=== PATIENT | female | born 2000 | race Caucasian/White ===

== ENCOUNTER 2024-05-15 20:22 | Emergency (ER) | payer SELFPAY ==
[2024-05-15 20:34] VITALS: BMI 21.0
[2024-05-15 20:50] VITALS: BP 114/71
--- NOTE | 2024-05-15 21:00 | EDRN ---
Pt resides at a sober living house currently and has for the past 2 months.
To contact the Geotechnical Field Technician of sober living housing please call PAT at [phone].
To contact the employment specialist/program manager of sober living [facility] (who brought the pt to the ER) please call [phone]
--- NOTE | 2024-05-15 21:25 | ED.GENMED ---
History of Present Illness
General
Chief Complaint: Suicidal Ideation
Source: patient
Time Seen by Provider: 05/15/24 20:59
History of Present Illness
History of Present Illness:
24-year-old female with a history of bipolar disorder and substance abuse who is living in a sober living house and for last several weeks has felt suicidal. Tonight while walking she admitted that she felt the need to jump into traffic. Staff
became concerned and spoke with the nurse practitioner who advised to come for evaluation. Patient currently does report feeling suicidal but admits that she is always willing to tell people when she does. Currently offers no medical complaints.
Past History
Past History
ED Past Medical History: Psychiatric (Anxiety, bipolar disorder, substance abuse)
Phy Exam
Physical Exam
Physical Exam:
CONSTITUTIONAL Vital signs reviewed, Patient alert and oriented to person, place and time. Well-appearing
HEAD atraumatic, normocephalic.
EYES eyelids normal to inspection, Extraocular muscles intact, Conjunctiva normal, Sclera normal.
NECK normal range of motion, Trachea midline, no jugular venous distention.
RESP no respiratory distress
BACK No obvious deformities
UPPER EXTREMITY Gross Range of motion normal, gross motor strength normal
LOWER EXTREMITY Gross range of motion normal, Gross motor strength normal
NEURO Speech normal, No focal motor deficits include, [place] coma scale 15, Memory normal, Cranial Nerves intact to screening exam.
SKIN Skin warm, dry, and normal in color.
PSYCHIATRIC Patient oriented to person place and time, Normal affect.
Course
Orders/Labs/Results
Orders:
Orders
05/15/24 20:28
1:1 Observation - Suicide/ Violent Behavior As Directed
Crisis Consult Urgent
Reason for Consult: suicidal ideation
05/16/24 00:09
Test Result ONCE
05/16/24 00:12
Buspirone [Buspar] 15 mg PO NOW STA
Divalproex Delayed Rel. 12 Hr [Depakote (12 Hr Release)] 125 mg PO NOW STA
Quetiapine Fumarate [Seroquel] 100 mg PO NOW STA
05/16/24 00:16
, Urine Qualitative Screen [HCG, Urine Qualitative Screen] Urgent
Date Specimen was Collected: 05/16/24
Time Specimen was Collected: 00:09
Urine Drug Abuse Screen Urgent
Date Specimen was Collected: 05/16/24
Time Specimen was Collected: 00:09
Vital Signs
Initial and Last Documented VS:
Initial Vital Signs
Temp Pulse Resp BP Pulse Ox
98.5 F 82 18 114/71 99
05/15/24 20:50 05/15/24 20:50 05/15/24 20:50 05/15/24 20:50 05/15/24 20:50
Last Documented Vital Signs
Temp Pulse Resp BP Pulse Ox
98.5 F 73 18 111/68 98
05/15/24 20:50 05/16/24 00:10 05/15/24 20:50 05/16/24 00:10 05/16/24 00:10
MDM/Problems Addressed
MDM/Problems Addressed:
Suicidal ideation, major depression
*Pulse Oximetry
Patient hypoxic: no
*Critical Care Note
Total Time (30-74mins, 75-104mins- exclusive of procedures): Not Applicable
Data Reviewed
Source: patient
Patient Management
Discussion with other providers: Other (Crisis staff)
Escalation/DeEscalation of care consider admission/obs:
24-year-old female seen by telepsychiatry. Patient is agreeable to go to inpatient psychiatric care. Currently stable. No acute medical complaints. Pending placement
ED Attending Note
-
Portions of this chart may have been created with voice recognition software.� Occasional wrong word or��sound alike� substitutions may have occurred due to the inherent limitations of voice recognition software.
Discharge Plan
Departure
Patient Disposition: Psych Facility
Date of Disposition: 05/15/24
Time of Disposition: 21:25
Discharge Problem:
Major depression, Suicidal ideation
Prescriptions:
No Action
venlafaxine [Effexor XR] 37.5 mg capsule,extended release 24hr
37.5 mg PO DAILY
naltrexone 50 mg tablet
50 mg PO DAILY
quetiapine 100 mg tablet
100 mg PO HS
divalproex [Depakote] 125 mg tablet,delayed release (DR/EC)
125 mg PO BID
buspirone 7.5 mg tablet
7.5 mg PO BID@0900,1200
buspirone 7.5 mg tablet
15 mg PO HS
loratadine 10 mg tablet
10 mg PO DAILY
Vraylar 4.5 mg capsule
4.5 mg PO HS
Referrals:
NONE,* [Family Provider] -
Interventions
Interventions:
*Risk Screen - Suicide Last Done: 05/15/24 20:26
*General Assessment Last Done: 05/15/24 20:34
*Neglect/Abuse Screening Last Done: 05/15/24 20:34
ED- Fall Risk Assessment Last Done: 05/15/24 20:44
*ED COVID-19 Vaccine History Last Done: 05/15/24 20:34
ED-Psychological Assessment Last Done: 05/15/24 20:44
Discharge Date and Time
Print Language: PERSIAN
[2024-05-16 00:10] VITALS: BP 111/68
[2024-05-16 00:39] LABS: Amphetamines Negative (Negative); Barbiturates Negative (Negative); Benzodiazepines Negative (Negative); Buprenorphine Negative (Negative); Cocaine Negative (Negative); HCG, Urine Qualitative Screen Negative; Marijuana Negative (Negative); Methadone Negative (Negative); Methamphetamines Negative (Negative); Opiates Negative (Negative); Phencyclidine Negative (Negative); Tricyclic Antidepressants Negative (Negative)
[2024-05-16] MEDS: SEROQUEL 100 MG PO (00:49)
[2024-05-16] MEDS: BUSPAR 15 MG PO (00:50)
[2024-05-16] MEDS: DEPAKOTE (12 HR RELEASE) 125 MG PO (00:50)
[2024-05-16 12:05] VITALS: BP 161/82
--- NOTE | 2024-05-16 14:00 | EDRN ---
staff from crisis approached this RN at the nurses station and notified this RN that transport was here for the pt however they stated that the pt ambulated to the bathroom and got 'lightheaded' and fell and hit her head and her left hip, this RN
entered the crisis area to assess the pt and the pt was standing outside of the bathroom in crisis and stated, 'I am fine this happens all the time i just get dizzy when i stand up too fast that's all', this RN notified Dr. Burrell who was brought to
the pts bedside, there are no s/s of trauma per Dr. Burrell, no head laceration and no hematoma, no s/s of bleeding, per Dr. Burrell he was okay with the pt being transferred, per Dr. Burrell the pt was given water and an ER lunch box
[2024-05-16 14:15] VITALS: BP 125/81
== END 2024-05-16 14:35 ==
LOC: EMR 20:22
PROVIDERS: EMERGENCY PHYSICIAN Emergency Medicine
DX: F32.9 Major depressive disorder, single episode, unspecified (principal); R45.851 Suicidal ideations; F41.9 Anxiety disorder, unspecified; F19.10 Other psychoactive substance abuse, uncomplicated; Z88.0 Allergy status to penicillin
CPT/HCPCS: 99282; 80306; 81025

== ENCOUNTER 2024-07-18 10:09 | Emergency (ER) | payer SELFPAY ==
[2024-07-18 10:19] VITALS: BP 109/76
--- NOTE | 2024-07-18 12:13 | ED.GENMED ---
History of Present Illness
General
Chief Complaint: Musculo-Skeletal Complaint
Source: patient
Exam Limitations: none
Time Seen by Provider: 07/18/24 11:32
Nursing documentation reviewed up to this point in time: agreed with
History of Present Illness
History of Present Illness:
Patient is a 24-year-old female presenting to the emergency department with left ankle injury. Patient states she was walking on a curb yesterday around 7 PM when she slipped inverting her left ankle. Patient states she did not fall to the ground.
No head strike or other injury sustained. Patient reports immediate pain in her left ankle and difficulties weightbearing. She did ice, elevate and take ibuprofen/Tylenol last night and this morning. However�this morning patient was unable to
weight-bear and noticed swelling of her left ankle prompting visit to the emergency department. Patient denies any numbness/tingling in left ankle. No other concerns today.
Past History
Past History
ED Past Medical History: Psychiatric (Anxiety, bipolar disorder, substance abuse)
Review of Systems
Review of Systems
Allergies reviewed?: Yes
All Other Systems: ROS reviewed and negative except as documented in HPI and ROS
Phy Exam
Physical Exam
Physical Exam:
Vitals: Patient's vital signs are stable. Afebrile
General: Patient is well appearing, no acute distress
Skin: Warm and dry, no rashes or lesions
Head: Normocephalic, atraumatic
Throat: Protecting airway
Neck: Normal ROM, no cervical spine tenderness
Cardiac: Regular rate
Pulm: No apparent respiratory distress
Abdomen: Nondistended
Extremities: Point tenderness just anterior to left lateral malleolus near ATFL insertion. Minimal edema over left lateral malleolus. No bony tenderness of left medial or lateral malleolus. No tenderness at base of left fifth metatarsal, midfoot,
hindfoot. No tenderness of calcaneus. No tenderness at head of left fibula. Achilles intact. Pain with both dorsiflexion/plantarflexion of left ankle. Left knee atraumatic nontender with full range of motion. Palpable left DP pulse. Sensation
intact. Refill WNL.
Neuro: Grossly intact
Psychiatric: Normal affect.
Course
Orders/Labs/Results
Orders:
Orders
07/18/24 10:22
Ankle, left 3 view CR [CR Ankle - Left Min 3 Views ] Urgent
Comment:
Reason For Exam: injury
07/18/24 12:12
Crutches-Treatment ONCE
Ortho Boot Left- Treatment ONCE
Short or tall?: Tall
Vital Signs
Initial and Last Documented VS:
Initial Vital Signs
Temp Pulse Resp BP Pulse Ox
99.3 F 85 16 109/76 98
07/18/24 10:19 07/18/24 10:19 07/18/24 10:19 07/18/24 10:19 07/18/24 10:19
Last Documented Vital Signs
Temp Pulse Resp BP Pulse Ox
99.3 F 85 16 109/76 98
07/18/24 10:19 07/18/24 10:19 07/18/24 10:19 07/18/24 10:19 07/18/24 10:19
MDM/Problems Addressed
Differential Diagnosis Includes:
Not limited to: Ankle sprain, ankle fracture, foot sprain, foot fracture, Achilles tendon rupture etc.
MDM/Problems Addressed:
24-year-old female presenting with left ankle injury after mechanical fall last night. Unable to bear weight due to pain. No numbness/tingling left lower extremity. No head strike, loss of consciousness, or other injuries. Vital stable. Exam as
above. Minimal tenderness just anterior to left lateral malleolus near ATFL insertion site. No bony tenderness of left ankle. Left lower extremity neurovascularly intact. X-ray of left ankle obtained without any evidence of acute fracture.
Suspect likely ankle sprain. Patient will be given Ortho boot and crutches as needed. Patient will follow-up with orthopedics, information given. Recommended rest, ice, compression, elevation. Advised NSAIDs for pain. Return precautions
discussed. Patient stable for discharge home
Chronic conditions affecting care:
N/A
Acute Exacerbation and/or Progression of Chronic Illness:
N/A
*Radiology
Radiology exam reviewed: preliminary read by ED provider (X-ray reviewed by me-no acute fracture) and radiology read reviewed
*Pulse Oximetry
Patient hypoxic: no
*EKG
Interpreted by ED Provider?: NA
*[place] Washing System Operator Interpretation
Rate: [place] Washing System Operator- N/A
*Critical Care Note
Total Time (30-74mins, 75-104mins- exclusive of procedures): Not Applicable
ED Attending Note
-
Portions of this chart may have been created with voice recognition software.� Occasional wrong word or��sound alike� substitutions may have occurred due to the inherent limitations of voice recognition software.
Discharge Plan
Departure
Patient Disposition: Home (Routine Discharge)
Date of Disposition: 07/18/24
Time of Disposition: 12:40
Patient with high blood pressure during this ER visit?: No
Condition: Good
Covid-19: Not Applicable
Discharge Problem:
Left ankle sprain
Instructions: Ankle sprain - ED discharge instructions
Prescriptions:
No Action
venlafaxine [Effexor XR] 37.5 mg capsule,extended release 24hr
37.5 mg PO DAILY
naltrexone 50 mg tablet
50 mg PO DAILY
quetiapine 100 mg tablet
100 mg PO HS
divalproex [Depakote] 125 mg tablet,delayed release (DR/EC)
125 mg PO BID
buspirone 7.5 mg tablet
7.5 mg PO BID@0900,1200
buspirone 7.5 mg tablet
15 mg PO HS
loratadine 10 mg tablet
10 mg PO DAILY
Vraylar 4.5 mg capsule
4.5 mg PO HS
Referrals:
Yael Guajardo I., DO [Active] - Call in 1-3 days for appt
UNKNOWN - PT DOES,NOT KNOW [Family Provider] -
Activity Restrictions/Additional Instructions:
RETURN TO THE EMERGENCY DEPARTMENT WITH ANY NUMBNESS/TINGLING IN LEFT FOOT, INTRACTABLE PAIN, OR ANY OTHER CONCERNS
-As discussed/your x-ray obtained the emergency department did not show a fracture of your left ankle. I suspect you likely sustained a left ankle sprain.
-It is important to keep your left foot elevated and ice often throughout the day. You can take Tylenol and/or Motrin as needed for discomfort. Keep your left foot in boot and weight-bear as tolerated
-Follow-up with orthopedics for further evaluation/management. This may require further imaging
Monitor your symptoms closely return to the emergency department any acute worsening/new symptoms or any other concerns
Interventions
Interventions:
*Risk Screen - Suicide Last Done: 07/18/24 10:19
*General Assessment Last Done: 07/18/24 11:25
*Neglect/Abuse Screening Last Done: 07/18/24 10:19
ED- Fall Risk Assessment Last Done: 07/18/24 11:25
*ED COVID-19 Vaccine History Last Done: 07/18/24 11:25
*Nursing Disposition Last Done: 07/18/24 13:05
ED-Musculoskeletal Assessment Last Done: 07/18/24 11:25
Discharge Date and Time
Discharge Date/Time: 07/18/24 13:06
Print Language: [id number]
== END 2024-07-18 13:06 | disposition home or self-care (01) ==
LOC: EMR 10:09
PROVIDERS: EMERGENCY PHYSICIAN Emergency Medicine
DX: S93.402A Sprain of unspecified ligament of left ankle, initial encounter (principal); W18.49XA Other slipping, tripping and stumbling without falling, initial encounter
CPT/HCPCS: 99283; 73610